=== PATIENT | female | born 1980 | race Hispanic/Latino ===

== ENCOUNTER → 2022-09-17 | Outpatient (CLI) | payer OTHER | LOC: M LAB 10:07 | PROVIDERS: ATTEND Obstetrics & Gynecology | DX: O03.4 Incomplete spontaneous abortion without complication (principal) ==

== ENCOUNTER 2024-02-28 09:13 | Day surgery (SDC) | payer OTHER ==
[~2024-02-28] VITALS: Ht 154.9 cm; Wt 69.9 kg
[~2024-02-28 09:13] MED LIST: ASPI81CH33 PO; CHOL125C6 PO; LABE300T3 PO; LISI20TA33 PO; PRENTAB9 PO; TUMS750C5 PO; ZOLO100T PO
[2024-02-28] MEDS: NS 1,000 ML IV ONE (10:00)
[2024-02-28] MEDS ORDERED: propofoL 500 MG/50 ML VIAL As Ordered ONE (10:37)
[2024-02-28 10:55] VITALS: TEMP 97
[2024-02-28 11:19] VITALS: BP 137/76; O2SAT 98
[2024-02-28] MEDS ORDERED: LABETALOL 100MG/20ML VIAL As Ordered ONE (13:51)
== END 2024-02-28 11:29 | disposition home or self-care (01) ==
LOC: M OPP 09:13
PROVIDERS: ATTEND Internal Medicine Gastroenterology
DX: K21.00 Gastro-esophageal reflux disease with esophagitis, without bleeding (principal); K29.50 Unspecified chronic gastritis without bleeding; R13.10 Dysphagia, unspecified; I10 Essential (primary) hypertension; Z79.899 Other long term (current) drug therapy; F41.9 Anxiety disorder, unspecified; F32.9 Major depressive disorder, single episode, unspecified

== ENCOUNTER → 2024-12-04 | Outpatient (CLI) | payer OTHER ==
[~2024-12-04] MED LIST changes: +BARIUM SULFATE 700 MG TABLET (E-Z-DISK) As Ordered ONE; +E-Z-PAQUE 96% w/w SUSP 176GM BTL As Ordered ONE; +VARIBAR NECTAR 40% w/v 240ML SUSP BTL As Ordered ONE; +VARIBAR PUDDING 40% w/v 230ML TUBE As Ordered ONE
== END ==
LOC: M RAD 11:03
PROVIDERS: ATTEND Nurse Practitioner Family
DX: R13.10 Dysphagia, unspecified (principal)